=== PATIENT | female | born 1965 | race African-American/Black ===

== ENCOUNTER 2020-01-16 21:22 | Inpatient (IN) | payer OTHER ==
[~2020-01-16] VITALS: Ht 165.1 cm; Wt 54.7 kg
[2020-01-16 21:31] VITALS: BP 164/92
[2020-01-16 21:54] LABS: HEMATOCRIT 34.4 % (37.0-47.0); HEMOGLOBIN 11.1 gm/dL (12.0-15.0); MCH 29.1 pg (26.0-34.0); MCHC 32.2 g/dL (28.0-37.0); MCV 90.3 fL (80.0-100.0); PLATELET COUNT 265 thou/uL (150-400); RBC 3.81 mil/uL (4.20-5.00); RDW 12.3 % (10.5-14.5); WBC 7.1 thou/uL (4.0-11.0)
[2020-01-16 22:03] LABS: ANION GAP 8 mmol/L (7-16); BUN 11 mg/dL (7-18); CALCIUM 9.3 mg/dL (8.5-10.1); CHLORIDE 101 mmol/L (98-107); CO2 28 mmol/L (21-32); CREATININE 0.8 mg/dL (0.6-1.0); GLUCOSE 120 mg/dL (74-106); POTASSIUM 3.3 mmol/L (3.5-5.1); SODIUM 137 mmol/L (136-145)
[2020-01-16 22:10] LABS: URINE BILIRUBIN NEGATIVE (Negative); URINE BLOOD TRACE (Negative); URINE CLARITY CLEAR; URINE COLOR YELLOW; URINE GLUCOSE-RANDOM* NEGATIVE (Negative); URINE KETONES TRACE (Negative); URINE LEUKOCYTES-REFLEX NEGATIVE (Negative); URINE NITRITE-REFLEX NEGATIVE (Negative); URINE PROTEIN (DIPSTICK) NEGATIVE (Negative); URINE SPECIFIC GRAVITY 1.025 (1.005-1.035); URINE UROBILINOGEN 0.2 E.U./dl (0.2-1.0)
[2020-01-16 22:13] LABS: ALBUMIN 4.2 g/dL (3.4-5.0); SGOT 15 U/L (15-37); SGPT 14 U/L (30-65); TOTAL BILIRUBIN 0.2 mg/dL (<0.1-1.0); TOTAL PROTEIN 8.4 g/dL (6.4-8.2); TROPONIN-I <0.06 ng/mL (<0.06)
[2020-01-16 22:18] LABS: AMP/METHAMP Negative (Negative); BARBITURATES Negative (Negative); BENZODIAZEPINES Negative (Negative); COCAINE Negative (Negative); METHADONE Negative (Negative); OPIATES Negative (Negative); PCP Negative (Negative)
[2020-01-16 22:50] LABS: ABSOLUTE NEUTROPHILS 2.6 thou/uL (1.4-8.2); ATYPICAL LYMPHS 4 %; LARGE PLATELETS OCCASIONAL
[2020-01-17 01:39] VITALS: BP 151/85
[2020-01-17 01:48] VITALS: BP 151/85
[2020-01-17 02:03] VITALS: BP 160/92
--- NOTE | 2020-01-17 04:20 | NUR ---
Pt admitted to rm 355 from the ER for vertigo and ataxia. Alert X4. Ambulates to BR with slightly unsteady gait with assistance of 1 person. Explained fall precautions to pt. Bed alarm on. Call light in reach. Bed in low locked position. Pt denies nausea presently. NS infusing at 125 ml/hr RAC PIV. Pt stated left arm tingles at times intermittently due to what she thinks is carpal tunnel syndrome from work. Oriented pt to room. Credit cards and checkbook sent to security. Pt has refused her scds due to they are keeping her awake.
[2020-01-17 07:14] VITALS: BP 114/70
--- NOTE | 2020-01-17 09:44 | NUR ---
PT CARE ASSUMED AT 0700, PT ALERT AND ORIENTED X4, DENIES ANY PAIN, NUMBNESS AND TINGLING. COMPLAINS OF DIZZINESS. NO DISTRESS NOTED. ASSESSMENT COMPLETED. CALL LIGHT AND TABLE IN REACH. BED AT LOWEST LEVEL WITH ALARM ON. WILL CO TINUE TO MONITOR.
--- NOTE | 2020-01-17 13:47 | NUR ---
ASSESSMENT: CM REVIEWED CHART AND MET WITH PATIENT AT THE BEDSIDE. PT IS ALERT AND ORIENTED X4. PT REPORTS SHE IS CURRENTLY LIVING WITH HER SISTER AT HER HOUSE. PT REPORTS HAVING COUPLE STEPS TO ENTER. PT REPORTS BEING FULLY INDEPENDENT WITH ADLS AND AMBULATION. PT REPORTS SHE HAS NOT HAD HH IN THE PAST NOR BEEN TO A SNF. PT HAS A [facility] PLAN THAT IS NORMALLY OUT OF NETWORK WITH [facility]. CM CONTACTED ALAN Robles AT [facility] [phone] TO CHECK STATUS ON THIS OR IF PT NEEDS TO TRANSFER. ALAN STATING SHE IS UNSURE IT HAS BEEN REVIEWED YET AND TO PLEASE SEND CLINICAL LIYA AND NORMALLY PT WILL LIKELY BE APPROVED ONE DAY WITH POSSIBLE NEED TO TRANSFER TOMORROW. CM NOTIFIED UR RN TO SEND CLINICALS LIYA. CM WILL CONTINUE TO FOLLOW TO ASSIST NEEDED.
--- NOTE | 2020-01-17 14:23 | NUR ---
ORDERS RECEIVED FOR PT EVAL AND TREAT. Pt ADMITTED 01/17/20 WITH VERTIGO, NAUSEA, AND GAIT INSTABILITY. ORTHOSTATIC NEGATIVE PER EMR. PER CHART, Pt'S INSURANCE IS OUT OF NETWORK WITH [facility]. Pt MAY NEED TO TRANSFER TO ANOTHER FACILITY TOMORROW. IF Pt STILL HERE TOMORROW, WILL PLAN TO COMPLETE VESTIBULAR ASSESSMENT THEN, OTHERWISE RECOMMEND VESTIBULAR FOLLOW UP AT NEXT FACILITY WHERE Pt'S INSURANCE IS COVERED/IN-NETWORK.
[2020-01-17 15:08] VITALS: BP 132/85
--- NOTE | 2020-01-17 15:44 | EKG ---
[facility] [place] [address] ELECTROCARDIOGRAM REPORT Name: THAI ECKERT Room #: 355- ADM IN M.R.#: [id number] Admission: 01/17/20 Attend Phys: Bindu Mckeon MD Discharge: Date of : 65 Report #: [id number] THIS REPORT FOR: cc: [facility] - Clinic physician unknown [facility] - Clinic physician unknown Chente Watts MD [facility] ~ THIS REPORT FOR: //name// [facility] ED Test Date: 2020-01-16 Test Time: 21:28:19 Pat Name: THAI ECKERT Department: Room: [facility] Gender: F Assembler Camper: MANISHA : 1965 Requested By: Fatoumata White Order Number: [id number] MD: Chente Watts Measurements Intervals [place] Rate: 108 P: 70 SD: 175 QRS: 88 QRSD: 86 T: 17 QT: 348 QTc: 467 Interpretive Statements Sinus tachycardia Otherwise normal tracing No previous ECG available for comparison Electronically Signed On 01-17-2020 15:43:03 CDT by Chente Watts [email or web address] <ELECTRONICALLY SIGNED> By: Chente Watts MD, FAC 01/17/20 1543 27 27 Chente Watts MD, [facility] /EPI
[2020-01-17 20:15] VITALS: BP 126/79
[2020-01-18 04:15] VITALS: BP 117/64
--- NOTE | 2020-01-18 05:05 | NUR ---
Pt progressing towards discharge goals. No c/o n/v. No c/o dizziness. Refused valium. Pt compliant with fall precautions. No s/s distress presently. Hr 55 other VSS. Sb on monitor.
[2020-01-18 07:21] VITALS: BP 152/98
--- NOTE | 2020-01-18 10:47 | NUR ---
PT CARE ASSUMED AT 0700, PT ALERT AND ORIENTED X4, PT DENIES ANY DIZZINESS,NAUSE AND VOMITING. PT DENIES ANY PAIN. NO SIGNS OF DISTRESS NOTED. ASSESSMENT COMPLETED. PT WENT DOWN FOR CT. WILL CONTINUE TO MONITOR.
[2020-01-18] MEDS ORDERED: PEPCID20 MG PO (12:23)
[2020-01-18] MEDS ORDERED: ONDANSETRON ODT4 MG PO (12:23)
[2020-01-18] MEDS ORDERED: MECLIZINE HCL25 MG PO (12:23)
[2020-01-18 13:08] VITALS: BP 152/98
--- NOTE | 2020-01-18 14:19 | NUR ---
DISCHARGE PAPERWORK, MEDICATION INSTRUCTION GIVEN TO PT. PT BELONGINGS PACKED AND GIVEN TO PT. CREDIT CARD AND CHECK BOOK GIVEN BACK TO PT BY SECURITY. PT DENIES ANY OTHER NEEDS. TAKEN TAKEN DOWN VIA WHEEL CHAIR
== END 2020-01-18 15:25 | disposition home or self-care (01) | DRG 149 ==
LOC: ER 21:22 → EROBS 01-17 01:26 → 3W 01-17 01:26
PROVIDERS: Emergency Medicine Emergency Medical Services; ADMIT Hospitalist
DX: H81.12 Benign paroxysmal vertigo, left ear (principal); E87.6 Hypokalemia; K21.9 Gastro-esophageal reflux disease without esophagitis; R00.0 Tachycardia, unspecified; D72.820 Lymphocytosis (symptomatic); Z88.2 Allergy status to sulfonamides; Z79.899 Other long term (current) drug therapy
CPT/HCPCS: 10879